=== PATIENT | female | born 1955 ===

== ENCOUNTER 2016-08-12 23:26 | Inpatient (IN) ==
[2016-08-13 00:10] LABS: ALLEN TEST YES; BLOOD TYPE ARTERIAL; DRAW SITE R BRACHIAL; O2(CT) 13.5 mL/dL (15.0-23.0); PO2(98.6) 56 mmHg (60-100); SAMPLE BLOOD; THB 10.9 g/dL (11.5-17.4); pH(98.6) 7.39 (7.35-7.45)
[2016-08-13 00:11] LABS: MODALITY CANNULA
[2016-08-13 00:13] LABS: PCO2(98.6) 51 mmHg (35-45)
[2016-08-13 00:17] LABS: MANUAL DIFF NEEDED? NO
[2016-08-13 00:24] LABS: BASO% 1.2 % (0.0-0.8); EOS# 1.11 X1000 (0.0-0.7); EOS% 8.8 % (0.0-10.0); HEMATOCRIT 34.8 % (37.0-47.0); HEMOGLOBIN 11.3 g/dL (12.0-16.0); IMM GRAN# 0.03 X1000 (0.0-0.04); IMM GRAN% 0.2 % (0.0-0.5); LYMPH# 4.52 X1000 (1.2-3.4); LYMPH% 35.9 % (20.5-51.1); MCH 29.4 PG (27-31); MCHC 32.5 g/dL (33-37); MCV 90.6 FL (81-99); MONO# 1.05 X1000 (0.11-0.59); MONO% 8.3 % (1.7-9.3); MPV 9.6 FL (7.4-10.4); NEUT% 45.6 % (42.2-75.2); PLT 374 X1000 (130-400); RBC 3.84 XMIL (4.2-5.4)
[2016-08-13 00:52] LABS: URINE CULTURE NEEDED? NO; URINE MICRO REVIEW NEEDED? NO; URINE SOURCE CATH
[2016-08-13 00:55] LABS: BILIRUBIN URINE NEGATIVE (NEGATIVE); BLOOD URINE NEGATIVE (NEGATIVE); COLOR YELLOW; GLUCOSE URINE NEGATIVE (NEGATIVE); LEUKOCYTES URINE NEGATIVE (NEGATIVE); NITRITE URINE NEGATIVE (NEGATIVE); PH URINE 6.5; PROTEIN URINE TRACE mg/dL (NEGATIVE); SP GRAVITY URINE 1.019; TURBIDITY URINE CLEAR (CLEAR); UR EPITHELIAL CELLS <10 /HPF (<10); URINE BACTERIA NEGATIVE /HPF; URINE RBC <10 /HPF (<10); URINE WBC <10 /HPF (<10); UROBILINOGEN URINE NORMAL (NORMAL)
[2016-08-13 01:07] LABS: CK INDEX 1.5 (0.0-2.5); CK-MB 4.88 ng/mL (0.0-5.0)
[2016-08-13 01:07] LABS: UR AMPHETAMINES QUAL NONE DETECTED (NONE DETECT); UR BARBITUATES QUAL NONE DETECTED (NONE DETECT); UR BENZODIAZEPIN QUAL PRESUMPTIVE POSITIVE (NONE DETECT); UR CANNABINOIDS QUAL NONE DETECTED (NONE DETECT); UR COCAINE QUAL NONE DETECTED (NONE DETECT); UR METHADONE QUAL NONE DETECTED (NONE DETECT); UR OPIATES QUAL NONE DETECTED (NONE DETECT); UR OXYCODONE QUAL NONE DETECTED (NONE DETECT); UR PCP QUAL NONE DETECTED (NONE DETECT)
--- NOTE | 2016-08-13 04:08 | HISTORY AND PHYSICAL ---
Patient of MATTIE Potter. REASON FOR ADMISSION: Increased somnolence yesterday evening. HISTORY OF PRESENT ILLNESS: Dawna Wolf is a 61-year-old lady with a past medical history of Parkinson's disease, COPD, hypertension, hyperlipidemia, and bipolar disorder who, according to her , believed she took an inordinate amount of Klonopin and trazodone this night because she said she could not sleep. A few hours after taking these medications, he noticed that she was slumped face forward with her head almost touching the floor while sitting in the chair. He tried to arouse her but she was barely responsive, sat her up and tried to shake her to open her eyes. She barely did so. It was at that juncture that he called 911. She was brought into the ER and over the last 2 hours, she has been slowly arousing up to that point. I went into the room and gave her sternal rub. She opened her eyes. She was able to answer most of my questions except she did not know how she got to where she is and has no true recollection of the events preceding her increased somnolence except that she does concur with her that she has been having a hard time sleeping and took all her Klonopin that she was supposed to spread over the entire day, along with trazodone. She says that she has been battling insomnia more frequently since they cut her dose of her Klonopin from 2 mg to 1 mg. REVIEW OF SYSTEMS: Other than feeling drowsy and a little weak, she has no other complaints. Twelve system review is negative. Positive findings per HPI. ALLERGIES: Amoxicillin and niacin. HOME MEDICATIONS: Include Ventolin inhaler 2 puffs as directed, Abilify 5 mg q.a.m., carbidopa 1 tablet t.i.d., cholecalciferol 5000 units daily, clonazepam 1 mg t.i.d., estradiol 2 mg daily, Flonase 2 puffs b.i.d., gabapentin 800 mg in the evening and 1600 mg in the morning, Latuda 20 mg daily, omeprazole 40 mg daily, simvastatin 40 mg daily, Zanaflex 4 mg t.i.d., trazodone 100 mg at bedtime, venlafaxine (Effexor) 200 mg in the morning. SURGICAL HISTORY: She has had a bladder sling, foot surgery, and breast implants. FAMILY HISTORY: Notable for leukemia and heart disease. SOCIAL HISTORY: She is . Lives at home. Smokes about a pack a day. No alcohol use. No drug use. LABORATORY WORK: EKG shows sinus bradycardia. White count is 13,000, hemoglobin and hematocrit 11 and 34, platelets 374,000 with a normal differential. Plasma lactate 1.3. CK 26. UDS positive for benzodiazepines. Urinalysis essentially clear. Blood gas 7.39 pH , pCO2 51, PO2 56 and this was actually done on 3 L. Carboxyhemoglobin level was 6.7 and her O2 saturation was 94. Chemistry at this point in time is pending. Her chest film accounting for technique appears to be normal. No infiltrate, no increased vascular markings. Head CT, no acute bleed noted. PHYSICAL EXAMINATION: GENERAL: Thin, middle-aged, woman who appears older than her stated age. She is arousable but drowsy. She is oriented x3. She has normal mood and affect. HEENT: Head is normocephalic, atraumatic. Eyes, PERRLA, EOMI. She is anicteric, not pale. ENT and oropharyngeal exam is only notable for positive xerostomia. No central cyanosis. NECK: Supple. No JVD or carotid bruit. No thyromegaly. CHEST: Decreased entry in the bases but no added sounds. CARDIOVASCULAR: First and second heart sounds heard. No gallops, murmurs, or rubs. Rhythm is regular. ABDOMEN: Full, soft, nontender. No mass or organomegaly. Bowel sounds hypoactive. RECTAL: Examination is deferred at this time. EXTREMITIES: She has trace edema in both lower extremities. Pulses, however, distally in all extremities are intact and symmetrical. NEUROLOGICAL: No focal deficits appreciated. No tremors or myoclonus noted. No facial asymmetry noted. SKIN: Intact. No breakdown, lesions, or edema. MUSCULOSKELETAL: Exam is grossly normal otherwise. ASSESSMENT: 1. Toxic encephalopathy from unintentional but inappropriate use of medications. 2. Acute on chronic respiratory failure. 3. Chronic obstructive pulmonary disease. 4. Hyperlipidemia. 5. Hypertension. 6. Parkinson's disease. PLAN: At this time, we will await CMP and correct any electrolyte derangements due to the fact that the patient was complaining of muscle cramps prior to me leaving the room and she said she is took a lot of Lasix. We will correct all the electrolytes but increasing drug excretion. I have held all her WAISTBAND SETTER acting medications and this can be resumed in a sequential manner once she is very lucid. The patient will need her medications reviewed when she is discharged to forestall any recurrence of such. Hopefully, patient can be discharged within the next 24 -48 hours. We recommend that the patient be followed up by her psychiatrist to adjust her numerous bipolar medications to adjust them accordingly. cc: MD Katheryn Hodgson CRNP MTDD
[2016-08-13] MEDS ORDERED: TYLENOL PO PRN (04:09)
[2016-08-13] MEDS ORDERED: POTASSIUM CHLORIDE 10 MEQ in NS 1,000 ML IV ONE (04:09)
[2016-08-13] MEDS ORDERED: DUONEB (A & A) INH SCH (04:09)
[2016-08-13] MEDS ORDERED: ZOFRAN IV PRN (04:09)
[2016-08-13] MEDS: DUONEB (A & A) INH SCH ×5 (04:38→22:02)
[2016-08-13] MEDS: LOVENOX SUBQ SCH (04:45)
[2016-08-13] MEDS: ZOCOR PO SCH (08:31)
[2016-08-13] MEDS: SINEMET 10/100 PO SCH ×3 (08:32→16:22)
[2016-08-13] MEDS: NS 1,000 ML IV SCH ×2 (08:43→21:38)
[2016-08-13] MEDS ORDERED: PRILOSEC PO SCH (09:00)
--- NOTE | 2016-08-13 09:16 | Diag Imaging Result Doc PS360 ---
EXAM: HEAD W/O CONTRAST INDICATION: AMS COMPARISON: None. FINDINGS: There is no definite acute infarct given the limited sensitivity of CT versus MRI. There is no discrete intracranial mass, mass effect, or intracranial hemorrhage. The surrounding soft tissues and bony structures are essentially unremarkable. IMPRESSION: No evidence of acute intracranial pathology. Electronically signed by Elgin Beasley 08/13/2016 9:14 AM
[2016-08-13 09:36] LABS: AGAP 15; ALBUMIN 3.1 g/dL (3.5-5.0); ALKALINE PHOSPHATASE 75 U/L (32-104); BUN 13 mg/dL (8-22); CALCIUM 8.6 mg/dL (8.8-10.2); CHLORIDE 102 mmol/L (98-107); COSMO 277; GOT 18 U/L (10-30); GPT 14 U/L (10-36); SODIUM 138 mmol/L (136-145); TCO2 21 mmol/L (25-35); TOTAL BILIRUBIN 0.23 mg/dL (0.20-1.00); TOTAL PROTEIN 6.4 g/dL (6.3-8.3)
[2016-08-13] MEDS ORDERED: PRILOSEC PO ONE (09:38)
[2016-08-13] MEDS: LATUDA PO SCH (10:13)
--- NOTE | 2016-08-13 11:02 | Diag Imaging Result Doc PS360 ---
EXAM: CHEST-PORTABLE INDICATION: AMS TECHNIQUE: One view COMPARISON: 12/03/2015 FINDINGS: The lungs are grossly clear. There is no discrete pleural fluid collection or pneumothorax. The cardiomediastinal silhouette and central vasculature are grossly unremarkable. IMPRESSION: No evidence of acute pathology by plain radiograph. Electronically signed by Elgin Beasley 08/13/2016 11:00 AM
[2016-08-14] MEDS: DUONEB (A & A) INH SCH (02:59)
[2016-08-14] MEDS: LOVENOX SUBQ SCH (03:13)
[2016-08-14] MEDS ORDERED: PRILOSEC PO SCH (07:00)
--- NOTE | 2016-08-14 07:19 | EKG Report ---
Test Performed on : 08/12/2016 11:35:42 PM Test Reason : AMS Blood Pressure : / mmHG Vent. Rate : 055 BPM Atrial Rate : 055 BPM P-R Int : 166 ms QRS Dur : 082 ms QT Int : 464 ms P-R-T Axes : 059 058 054 degrees QTc Int : 443 ms Sinus bradycardia. Otherwise normal ECG When compared with ECG of 28-JUL-2013 13:07, No significant change was found Unconfirmed Result
[2016-08-14 07:33] LABS: MANUAL DIFF NEEDED? NO
[2016-08-14 07:37] VITALS: BP 153/85
[2016-08-14 07:39] LABS: BASO% 0.8 % (0.0-0.8); EOS# 1.09 X1000 (0.0-0.7); EOS% 11.3 % (0.0-10.0); HEMATOCRIT 37.9 % (37.0-47.0); HEMOGLOBIN 12.2 g/dL (12.0-16.0); IMM GRAN# 0.03 X1000 (0.0-0.04); IMM GRAN% 0.3 % (0.0-0.5); LYMPH# 3.06 X1000 (1.2-3.4); LYMPH% 31.8 % (20.5-51.1); MCH 29.5 PG (27-31); MCHC 32.2 g/dL (33-37); MCV 91.8 FL (81-99); MONO# 0.96 X1000 (0.11-0.59); MPV 10.7 FL (7.4-10.4); NEUT% 45.8 % (42.2-75.2); PLT 356 X1000 (130-400); RBC 4.13 XMIL (4.2-5.4)
[2016-08-14] MEDS: LATUDA PO SCH (08:08)
[2016-08-14] MEDS: SINEMET 10/100 PO SCH (08:08)
[2016-08-14] MEDS: ZOCOR PO SCH (08:08)
[2016-08-14 08:26] LABS: AGAP 16; ALBUMIN 3.2 g/dL (3.5-5.0); ALKALINE PHOSPHATASE 82 U/L (32-104); BUN 10 mg/dL (8-22); CHLORIDE 103 mmol/L (98-107); COSMO 279; GOT 19 U/L (10-30); GPT 13 U/L (10-36); MAGNESIUM 1.9 mg/dL (1.5-2.7); POTASSIUM 4.3 mmol/L (3.5-5.1); SODIUM 141 mmol/L (136-145); TCO2 22 mmol/L (25-35); TOTAL BILIRUBIN 0.17 mg/dL (0.20-1.00); TOTAL PROTEIN 7.5 g/dL (6.3-8.3)
--- NOTE | 2016-08-20 19:14 | DISCHARGE SUMMARY ---
ADMISSION DATE: 08/13/2016 DISCHARGE DATE: 08/14/2016 FINAL DISCHARGE DIAGNOSES: 1. Unintentional drug overdose. 2. Chronic obstructive pulmonary disease. 3. Hyperlipidemia. 4. Hypertension. 5. Parkinson's disease. HOSPITAL COURSE: Ms. Pa is a 61-year-old female with a history of multiple medical problems, who presented to the ER somnolent and unresponsive. The patient was admitted to the hospitalist service to the ICU. The patient was started on IV fluids and monitored closely. A head CT was done on admission that was noted to be unremarkable. By the following morning, the patient was awake and alert and stated that she wanted to go home. The patient was able to answer questions appropriately and was able to ambulate without any difficulty. The patient was cleared for discharge on 08/14/2016. DISCHARGE MEDICATIONS: 1. Abilify 5 mg p.o. every morning. 2. Trazodone 100 mg p.o. at bedtime. 3. Effexor have 2 tabs oral every morning. 4. Omeprazole 1 tablet oral daily. 5. Vitamin D3 1 tab oral daily. 6. Klonopin 1 mg p.o. 3 times a day. 7. Simvastatin 40 mg p.o. daily. 8. Estradiol 2 mg p.o. daily. 9. Fluticasone 2 puffs nasal twice a day. 10. Albuterol 2 puffs inhaled every 4 hours p.r.n. for shortness of breath. 11. Carbidopa-levodopa 1 tab orally 3 times a day. 12. Gabapentin 800 mg p.o. every evening. 13. Latuda 20 mg p.o. daily. 14. Gabapentin 1600 mg p.o. every morning. DISCHARGE DIET: Low-sodium diet. ACTIVITY: As tolerated. FOLLOWUP INSTRUCTIONS: The patient has been advised to follow up with her primary care physician in 1 week. cc: Nohelia Yoo MD
--- NOTE | 2016-08-24 17:28 | PROVIDER DOCUMENTATION ---
This chart was entered by Onesimo Dumont Scribe, acting as scribe for Estuardo Ruth MD. [id number] Abuse/Overdose - General Chief Complaint: Overdose Stated Complaint: OD Time Seen by Provider: 08/12/16 23:32 Source: patient, EMS Allergies/Adverse Reactions: Allergies Allergy/AdvReac Type Severity Reaction Status Date / Time amoxicillin Allergy FLUSHING Verified 08/13/16 00:06 niacin Allergy Unknown Verified 08/13/16 00:06 Home Medications: Home Medication List Medication Instructions Recorded Confirmed Last Taken Type Aripiprazole 5 mg PO QAM #30 tablet 03/11/15 08/13/16 06/26/16 09:00 Rx Trazodone [Desyrel] 100 mg PO QHS #30 tablet 03/11/15 08/13/16 06/25/16 21:00 Rx Venlafaxine HCl [Venlafaxine HCl 2 tab PO QAM #60 cap.er.24h 03/11/15 08/13/16 06/26/16 09:00 Rx ER] Albuterol Sulfate [Ventolin Hfa] 2 puff INH DIRECTED 06/26/16 08/13/16 21:00 History Cholecalciferol (Vitamin D3) 1 tab PO DAILY 06/26/16 08/13/16 06/26/16 09:00 History [Vitamin D3] Clonazepam 1 mg PO TID 06/26/16 08/13/16 06/26/16 09:00 History Estradiol 2 mg PO DAILY 06/26/16 08/13/16 06/26/16 09:00 History Fluticasone Propionate 2 puff NS BID 06/26/16 08/13/16 06/26/16 History Omeprazole 1 cap PO DAILY 06/26/16 08/13/16 06/26/16 09:00 History Simvastatin 40 mg PO DAILY 06/26/16 08/13/16 06/26/16 09:00 History Tizanidine HCl 4 mg PO TID 06/26/16 08/13/16 06/26/16 09:00 History Carbidopa/Levodopa [Carbidopa-Levo 1 each PO TID 08/13/16 08/13/16 Unknown History 10-100 Tab] Gabapentin 1,600 mg PO QAM 08/13/16 08/13/16 Unknown History Gabapentin 800 mg PO QPM 08/13/16 08/13/16 Unknown History Lurasidone HCl [Latuda] 20 mg PO DAILY 08/13/16 08/13/16 Unknown History - History of Present Illness-Drug/Alcohol Nature of Presenting Problem: Pt is a 61 yowf who presents to ER via EMS after being found on her living room floor. EMS reports that when they arrived on scene, firefighters were on scene and had pt sitting in a chair, holding her head up with a GCS of 13. Family reports that pt might have accidentally overdosed on her nighttime meds and is reported to have taken approximately clonopin(x2), trazadone (x3), and zanaflex (x3)-dosage unspecified. Family reports that pt has never had a problem with her rx's, but report that over the years, she has become use to taking more of her rx when needed to help her sleep. EMS reports that pt would not respond to painful stimuli, but is arousable with minimal effect in ED. This episode of drinking or use began:: just prior to arrival Severity: reports: moderate Situational problems related to:: reports: N/A Psychiatric Complaints: reports: denies symptoms (accidental ingection) Associated Symptoms: reports: weakness, other (found lying on living room floor) . denies: trouble walking Any injuries associated with this episode of intoxication?: No Similar Symptoms Previously?: No Recently seen or treated by another doctor?: No - Substance Abuse Substance Use: reports: benzodiazepines (Pt has rx; accidental ingestion) Review of Systems - Adult - REVIEW OF SYSTEMS - ADULT ROS:: limited per condition Constitutional: denies: chills, fever, fatique, night sweats, weight gain, weight loss Eyes: reports: no symptoms reported Ears, Nose, Mouth & Throat: reports: no symptoms reported Cardiovascular: reports: no symptoms reported Respiratory: reports: no symptoms reported Gastrointestinal: reports: no symptoms reported Genitourinary: reports: no symptoms reported Musculoskeletal: reports: no symptoms reported Integumentary: reports: no symptoms reported Neurological: reports: no symptoms reported Psychiatric: reports: insomnia. denies: anxiety, anti-depressant use, alcohol/ drug dependence, depression, emotional problems, panic attacks, suicidal thoughts Endocrine: reports: no symptoms reported Hematologic/Lymphatic: reports: no symptoms reported Allergic/Immunologic: reports: no symptoms reported All Other Systems: Reviewed and Negative Past History - Adult - PAST MEDICAL HISTORY-ADULT Review of Records: reports: Nursing Assessment Review, Medications Reviewed Cardiovascular: reports: HTN, hyperlipidemia Psychiatric: reports: anxiety, bipolar, psychiatric problems - IMMUNIZATION STATUS Childhood Immunizations: See Nurse Assessment Flu Vaccine: See Nurse Assessment - FAMILY HISTORY Family History: reviewed, not pertinent Physical Exam-General - PHYSICAL EXAM-ADULT Initial Vital Signs Reviewed: Yes - CONSTITUTIONAL General Appearance: appears well, alert, no apparent distress, lethargic, slow to respond, obtunded - EYES Eyes: PERRL/EOMI, pink conjunctivae. negative: photophobia, sclera injected, scleral icterus - HEAD, EARS, NOSE, MOUTH & THROAT HENMT: normocephalic/atraumatic, moist mucous membranes, normal ENT inspection, TMs normal, pharynx normal. negative: pharyngeal erythema, tonsillar exudate, TM abnormal - NECK Neck: non-tender, full range of motion, supple, normal inspection. negative: C- spine tenderness, limited range of motion, lymphadenopathy - RESPIRATORY Respiratory: chest non-tender, lungs clear, normal breath sounds, no pleuratic chest pain, no respiratory distress, no accessory muscle use. negative: respiratory distress, decreased breath sounds, accessory muscle use, wheezing - CARDIOVASCULAR Cardiovascular: normal peripheral pulses, regular rate, rhythm, other ( hypotensive (90/30)). negative: bradycardia, tachycardia, irregularly irregular - GASTROINTESTINAL (ABDOMEN) Abdominal Exam: normal bowel sounds, non tender, soft, no organomegaly, no pulsatile mass. negative: abnormal bowel sounds, distended, tenderness - LYMPHATIC Lymphatic: no adenopathy - MUSCULOSKELETAL Back Exam: normal inspection, no CVA tenderness, no vertebral tenderness. negative: CVA tenderness, vertebral tenderness Extremity: normal range of motion, non-tender, normal gait, normal inspection, no pedal edema, no calf tenderness, normal capillary refill, pelvis stable. negative: deformity, erythema, inflammation, swelling, tenderness - SKIN Integumentary: normal color, normal turgor, warm/dry. negative: abrasion(s), diaphoresis, ecchymosis, erythema, laceration(s), swelling, tenderness, warm - NEUROLOGIC Neurologic: preparation supervisor freezing II-XII nml as tested, grossly normal, no motor/sensory deficits . negative: facial droop, focal weakness, motor weakness, sensory deficit - PSYCHIATRIC Psych/Mental Status: normal mood/affect, normal thought content, normal thought process, oriented x 3 Progress - PLAN OF CARE/RESULTS Progress/Plan/Lab Results: Orders Category Date Time Status Admit - [facility] Routine AdmDCTranf 08/13/16 01:33 Ordered Activity - Up with Assistance ORDERED Care 08/13/16 04:09 Active Cardiac Monitoring DIRECTED Care 08/12/16 23:33 Completed Finger Stick Blood Sugar (ED) DIRECTED Care 08/12/16 23:33 Completed Intake and Output-Strict ORDERED Care 08/13/16 04:09 Active Oxygen Therapy- ED Nursing DIRECTED Care 08/12/16 23:33 Completed Saline Loc NOW Care 08/12/16 23:33 Completed Vital Signs Order Q 8-HR ASSESS Care 08/13/16 04:09 Completed Z-Document. for Tele Applied ORDERED Care 08/13/16 04:09 Active CHEST-PORTABLE [RAD] Stat Exams 08/12/16 23:33 Completed HEAD W/O CONTRAST [CT] Stat Exams 08/12/16 23:33 Completed ABG [RESP] Routine Lab 08/12/16 23:33 Completed ALCOHOL BLOOD Stat Lab 08/13/16 00:05 Completed CBC WITH DIFF [HEME] Routine Lab 08/14/16 04:30 Completed CBC WITH ELECTRONIC DIFF [HEME] Stat Lab 08/13/16 00:05 Completed CK PROFILE [SP CHEM] Stat Lab 08/13/16 00:05 Completed COMPREHENSIVE METABOLIC PANEL [CHEM] Routine Lab 08/14/16 04:30 Completed LACTATE, PLASMA [CHEM] Stat Lab 08/13/16 00:05 Completed MAGNESIUM [CHEM] Routine Lab 08/14/16 04:30 Completed URINALYSIS W/POSS RFLX CULT-1 [URINALYSIS] Stat Lab 08/13/16 00:28 Completed URINE DRUG SCREEN Stat Lab 08/13/16 00:28 Completed 0.9% Sodium Chloride Inj [Ns] 1,000 ml Med 08/13/16 04:09 Discontinued Potassium Chloride 10 meq IV 150 mls/hr Acetaminophen [Tylenol] Med 08/13/16 04:09 Discontinued 650 mg PO Q6H PRN PRN Albuterol 2.5MG/Ipratrop 0.5MG [Duoneb (A & A)] Med 08/13/16 04:09 Discontinued 3 ml INH Q6H Carbidopa/Levodopa [Sinemet 10/100] Med 08/13/16 09:00 Discontinued 1 each PO TID Enoxaparin [Lovenox] Med 08/13/16 04:09 Discontinued 40 mg SUBQ Q24H Omeprazole [Prilosec] Med 08/13/16 09:00 Discontinued 20 mg PO DAILY Ondansetron [Zofran] Med 08/13/16 04:09 Discontinued 4 mg IV Q4H PRN PRN SIMVAstatin [Zocor] Med 08/13/16 09:00 Discontinued 40 mg PO DAILY Aerosol Treatments Routine Oth 08/13/16 04:09 Completed Aerosol Treatments Stat Oth 08/13/16 04:09 Completed Telemetry [OM.EQ] Routine Oth 08/13/16 04:09 Active EKG [EKG] Stat Ther 08/12/16 23:33 Draft Transfer/Admit Order [TRANSFER] Routine Transfer 08/13/16 01:33 Completed Result Diagrams: 08/14/16 04:30 08/14/16 04:30 - EKG 1 Time of EKG reading by physician:: 23:35 EKG Read and Signed by:: Estuardo Ruth EKG Interpretation (*Must complete 3 of following elements*): Normal Rate: 55 Rhythm: Sinus bradycardia - CT/MRI 1 CT Study: Head Impression: See EMR Report CT Results: No acute intracranial abnormality. Normal examination-( Radiologist) Departure - Departure Date of Disposition Decision: 08/12/16 Time of Disposition Decision: 23:46 DIAGNOSIS: Overdose Disposition: ADMITTED INPATIENT 09 Certified Medical Emergency: Emergent Condition: Critical - Critical Care Note This patient required my direct & personal management of CC.: Yes Total Time (mins): 30 Critical Care Statement: This patient required my direct personal management to treat or rule out processes, the absence of which, could potentiallly result in sudden, clinically significant life or limb threatening deterioration. Attestation - Physician/ ADRIEL Attestation The physician spent face to face time with patient:: Yes Advanced Practice Provider documentation review:: The physician spent face to face time with this patient and agrees with all MLP documentation, treatment, and medical decision making by the MLP. See provider notes for further information. This chart was documented by the indicated scribe, (Onesimo Dumont, Ally) and accurately reflects the services I performed and decisions made by , Estuardo Ruth MD, as attested by the provider's signature.
== END 2016-08-14 09:17 | disposition home or self-care (01) ==
LOC: ED 23:26 → SUATTDRO 08-13 02:48 → ICU 08-13 02:48
PROVIDERS: ATTEND Internal Medicine